=== PATIENT | male | born 1970 | race Caucasian/White ===

== ENCOUNTER 2022-01-05 00:21 | Emergency (ER) | payer OTHER ==
[~2022-01-05] VITALS: Ht 172.7 cm; Wt 74.8 kg
--- NOTE | 2022-01-05 00:38 | NUR ---
DR. TONEY AT BEDSIDE, MSE IN PROGRESS.
--- NOTE | 2022-01-05 00:52 | NUR ---
LAB AT BEDSIDE.
--- NOTE | 2022-01-05 00:56 | NUR ---
PT BEING TAKEN DOWN FOR CT.
[2022-01-05 01:04] LABS: HEMATOCRIT 42.8 % (36.7-47.1); MEAN CORPUSCULAR HEMOGLOBIN 31.1 uug (23.8-33.4); PLATELET COUNT (AUTO) 218 K/uL (152-348)
--- NOTE | 2022-01-05 01:05 | NUR ---
PT RETURNED FROM CT.
[2022-01-05 01:16] LABS: BILIRUBIN,TOTAL 1.1 mg/dL (0.2-1.0); CREATININE 1.3 mg/dL (0.6-1.3); POTASSIUM 3.9 mmol/L (3.5-5.1)
--- NOTE | 2022-01-05 03:41 | NUR ---
Patient discharged to home in stable condition. Written and verbal after care instructions given. Patient verbalizes understanding of instructions. Stressed follow up or return to ER for worsening s/s. Steady gait, denies any pain/discomfort upon discharge. No changes in LOC. No n/v or BARNES. Accompanied by significant other.
[2022-01-05 03:46] VITALS: BP 124/80
== END 2022-01-05 03:46 | disposition home or self-care (01) ==
LOC: ER 00:21
DX: E86.0 Dehydration (principal); R55 Syncope and collapse; E03.9 Hypothyroidism, unspecified; J45.909 Unspecified asthma, uncomplicated
CPT/HCPCS: 36415; 70450; 84484; 85025; 93005; A4663